=== PATIENT | male | born 1960 | race African-American/Black ===

== ENCOUNTER 2016-07-18 05:06 | Emergency (ER) | payer MEDICAID ==
[~2016-07-18] VITALS: Ht 180.3 cm; Wt 128.0 kg
[2016-07-18 06:11] VITALS: BP 151/91
[2016-07-18] MEDS ORDERED: FAMOTIDINE 20MG TABLET PO ONE (06:45)
[2016-07-18] MEDS ORDERED: PREDNISONE 20MG TABLET PO ONE (06:45)
== END 2016-07-18 06:53 | disposition home or self-care (01) ==
LOC: ER 05:40
DX: T78.49XA Other allergy, initial encounter (principal); I10 Essential (primary) hypertension; E11.65 Type 2 diabetes mellitus with hyperglycemia; E66.9 Obesity, unspecified; Z68.39 Body mass index [BMI] 39.0-39.9, adult; X58.XXXA Exposure to other specified factors, initial encounter
CPT/HCPCS: 82962; 99283; J7512